=== PATIENT | male | born 1990 | race Caucasian/White ===

== ENCOUNTER 2021-01-06 13:49 | Outpatient (REF) | payer MEDICAID, SELFPAY ==
[2021-01-06 18:35] LABS: Calculated LDL 115 mg/dL (<100); Cholesterol 169 mg/dL (<200); HDL Cholesterol 45 mg/dL (40-60); Triglyceride 45 mg/dL (<150)
[2021-01-06 18:42] LABS: Hemoglobin A1C 5.3 % (<5.7)
== END 2021-01-06 13:50 | disposition home or self-care (01) ==
LOC: LBN 13:49
PROVIDERS: PCP Nurse Practitioner Family; Visit Provider Nurse Practitioner Family
DX: Z13.220 Encounter for screening for lipoid disorders (principal); Z13.1 Encounter for screening for diabetes mellitus
CPT/HCPCS: 80061; 83036